=== PATIENT | male | born 1955 | race Caucasian/White ===

== ENCOUNTER → 2021-04-05 | Outpatient (CLI) | payer OTHER ==
[~2021-04-05] MED LIST: PROTONIX40 MG PO
== END ==
LOC: HEART 5 14:57
DX: R06.02 Shortness of breath (principal); R05.9 Cough, unspecified
CPT/HCPCS: 94010

== ENCOUNTER → 2021-12-24 | Outpatient (CLI) | payer OTHER | LOC: CT 14:30 | DX: I25.10 Atherosclerotic heart disease of native coronary artery without angina pectoris (principal); I65.21 Occlusion and stenosis of right carotid artery | CPT/HCPCS: 70496; 70498; Q9967 ==